=== PATIENT | female | born 1995 | race Caucasian/White ===

== ENCOUNTER 2023-09-27 15:45 | Inpatient (IN) | payer OTHER ==
[~2023-09-27 15:45] MED LIST: Bupivacaine 0.25% 10 ML SDV ONE; Lidocaine 1% 10 ML MDV ONE
[2023-09-27] MEDS ORDERED: Sodium Chloride 0.9% 10 ML Syringe FLUSH PRN (16:39)
[2023-09-27] MEDS ORDERED: Nalbuphine HCl 10 MG/ 1ML Amp IVPUSH PRN (16:39)
[2023-09-27] MEDS ORDERED: Lidocaine 1% 50 ML MDV INJECT PRN (16:39)
[2023-09-27 16:41] LABS: BASOPHILS PERCENT AUTO 0.4 % (0.0-1.0); EOSINOPHILS ABSOLUTE AUTO 0.1 K/mm3 (0.0-0.4); EOSINOPHILS PERCENT AUTO 0.5 % (0.0-6.0); HEMATOCRIT 34.4 % (37.0-47.0); IMMATURE GRAN ABSOLUTE AUTO 0.03 K/mm3 (0.00-0.05); IMMATURE GRAN PERCENT AUTO 0.3 % (0.0-0.4); LYMPHOCYTES ABSOLUTE AUTO 1.8 K/mm3 (1.0-4.8); LYMPHOCYTES PERCENT AUTO 18.8 % (24.0-44.0); MEAN CORPUSCULAR HEMOGLOBIN 30.1 pg (28.0-32.0); MEAN CORPUSCULAR HGB CONC 34.9 g/dl (32.0-36.0); MEAN CORPUSCULAR VOLUME 86.2 fl (83.0-99.0); MEAN PLATELET VOLUME 11.9 fl (9.4-12.3); MONOCYTES ABSOLUTE AUTO 0.5 K/mm3 (0.0-0.8); PLATELET COUNT,PLT 172 K/mm3 (150-400); RED BLOOD CELL COUNT 3.99 M/mm3 (4.10-5.30)
[2023-09-27] MEDS ORDERED: Oxytocin/Lactated Ringers 30 UNIT/500 ML BAG IV SCH (16:45)
[2023-09-27 16:54] LABS: CREATININE 0.9 mg/dL (0.55-1.02); EST CRCL DRUG DOSING (CG) 82.99 mL/min; URIC ACID 6.2 mg/dL (2.6-6.0)
[2023-09-27 16:57] LABS: PROTEIN CREATININE RATIO,URINE 121.1 mg/g (0-149); PROTEIN,URINE RANDOM 17.8 mg/dL (0.0-11.8)
[2023-09-27] MEDS: Ampicillin 2 GM in Sodium Chloride 0.9% 100 ML IV ONE (17:39)
[2023-09-27] MEDS: Lactated Ringers 1,000 ML IV SCH (17:39)
[2023-09-27] MEDS: Oxytocin/Lactated Ringers 30 UNIT/500 ML BAG IV SCH (17:40)
[2023-09-27] MEDS ORDERED: Sodium Chloride 0.9% 10 ML Syringe FLUSH SCH (21:00)
[2023-09-27] MEDS: Ampicillin 1 GM in Sodium Chloride 0.9% 100 ML IV SCH (21:23)
[2023-09-27] MEDS ORDERED: ePHEDrine 50 MG/ML SDV IVPUSH PRN (23:08)
[2023-09-27] MEDS ORDERED: diphenhydrAMINE 50 MG/ML SDV IVPUSH PRN (23:08)
[2023-09-27] MEDS: fentaNYL 100 MCG/2 ML SDV EPIDUR PRN (23:19)
[2023-09-27] MEDS: Bupivacaine/fentaNYL/NS 100 ML Bag EPIDUR PRN (23:20)
[2023-09-28] MEDS: Carboprost Tromethamine 250 MCG/1 mL Vial IM ONE (04:20)
[2023-09-28] MEDS: Ondansetron 4 MG/2 ML SDV IVPUSH PRN (04:58)
[2023-09-28] MEDS ORDERED: Acetaminophen 325 MG Tab PO PRN (05:39)
[2023-09-28] MEDS ORDERED: Docusate Sodium 100 MG Cap PO PRN (05:39)
[2023-09-28] MEDS: Witch Hazel Medicated Pads 40/Jar TOP PRN (05:57)
[2023-09-28] MEDS: Benzocaine/Menthol 20%-0.5% Spray 78 GM Cannister TOP PRN (05:58)
[2023-09-28] MEDS: Ibuprofen 600 MG Tab PO PRN (13:35)
[2023-09-29] MEDS: Measles, Mumps & Rubella Vaccine 0.5 ML SDV SUBCUT ONE (16:05)
== END 2023-09-29 19:40 | disposition home or self-care (01) | DRG 807 ==
LOC: JD.OBCHECK 15:45 → JD.OB 15:51 → JD.OBCHECK 16:38 → JD.OB 16:39 → OBSVTOIN 09-28 04:26 → JD.MS 09-28 04:27 → JD.OB 09-28 20:41
PROVIDERS: ADMIT Obstetrics & Gynecology; ATTEND Obstetrics & Gynecology
PROC: 10D07Z6 Extraction of Products of Conception, Vacuum, Via Natural or Artificial Opening (ICD-10-PCS; principal; 2023-09-28)
PROC: 0KQM0ZZ Repair Perineum Muscle, Open Approach (ICD-10-PCS; 2023-09-28)
PROC: 10907ZC Drainage of Amniotic Fluid, Therapeutic from Products of Conception, Via Natural or Artificial Opening (ICD-10-PCS; 2023-09-28)
PROC: 3E033VJ Introduction of Other Hormone into Peripheral Vein, Percutaneous Approach (ICD-10-PCS; 2023-09-28)
PROC: 3E0R3BZ Introduction of Anesthetic Agent into Spinal Canal, Percutaneous Approach (ICD-10-PCS; 2023-09-28)
PROC: 00HU33Z Insertion of Infusion Device into Spinal Canal, Percutaneous Approach (ICD-10-PCS; 2023-09-28)
DX: O13.4 Gestational [pregnancy-induced] hypertension without significant proteinuria, complicating childbirth (principal); Z37.0 Single live birth; O99.824 Streptococcus B carrier state complicating childbirth; Z3A.39 39 weeks gestation of pregnancy; Z28.39 Other underimmunization status; O70.1 Second degree perineal laceration during delivery; O76 Abnormality in fetal heart rate and rhythm complicating labor and delivery
CPT/HCPCS: 36415; 51701; 51702; 59025; 59409; 82565; 82570; 83615; 84156; 84450; 84460; 84520; 84550; 85025; 86592; 86850; 86900; 86901; 90471; 90707; A9270-GY; J0290; J2405; J3010; J3490; J7120; J7999